=== PATIENT | female | born 1965 | race Caucasian/White ===

== ENCOUNTER 2021-05-04 14:07 | Emergency (ER) | payer SELFPAY ==
[~2021-05-04] VITALS: Ht 160 cm; Wt 68.0 kg
[2021-05-04] MEDS ORDERED: KETOROLAC TROMETHAMINE 30 MG/ML VIAL ONE (14:40)
[2021-05-04] MEDS ORDERED: FAMOTIDINE 20 MG/2 ML VIAL IV ONE ×2 (14:40→15:30)
[2021-05-04] MEDS ORDERED: SODIUM CHLORIDE 0.9% 1000ML 1,000 ML ONE (14:40)
[2021-05-04] MEDS ORDERED: ONDANSETRON HCL INJ 2MG/ML 2ML 2 MG/ML VIAL ONE (14:40)
[2021-05-04] MEDS ORDERED: KETOROLAC TROMETHAMINE 30 MG/ML VIAL IV STA (14:59)
[2021-05-04] MEDS ORDERED: ONDANSETRON HCL INJ 2MG/ML 2ML 2 MG/ML VIAL IV STA (14:59)
[2021-05-04] MEDS ORDERED: SODIUM CHLORIDE 0.9% 1000ML 1,000 ML IV SCH (15:00)
[2021-05-04] MEDS ORDERED: IOPAMIDOL 370 MG/ML 200 ML INFUS..BTL INJ ONE (16:03)
[2021-05-04] MEDS ORDERED: SODIUM CHLORIDE 0.9% 50ML 50 ML ONE ×2 (16:03→16:23)
[2021-05-04] MEDS ORDERED: HYDROCODONE/APAP 5MG-325MG TAB PO ONE (16:15)
[2021-05-04] MEDS ORDERED: PIPERACILLIN/TAZOBACTAM 4.5 GM in SODIUM CHLORIDE 0.9% 100 ML IV ONE (16:15)
[2021-05-04] MEDS ORDERED: DICYCLOMINE HCL 20 MG TAB PO ONE (16:15)
[2021-05-04] MEDS ORDERED: PIPERACILLIN/TAZOBACTAM SOD 2.25 GM VIAL ONE (16:23)
[2021-05-04] MEDS ORDERED: DICYCLOMINE HCL 10 MG CAP ONE (16:32)
[2021-05-04] MEDS ORDERED: CIPRO500 MG PO (17:10)
[2021-05-04] MEDS ORDERED: METRONIDAZOLE500 MG PO (17:12)
[2021-05-04] MEDS ORDERED: ONDANSETRON ODT4 MG PO (17:13)
[2021-05-04 17:16] VITALS: BP 114/70
[2021-05-04] MEDS ORDERED: HYDROCODON-ACE1 EA12 PO (17:18)
== END 2021-05-04 17:29 | disposition home or self-care (01) ==
LOC: FSED 14:35
DX: K57.32 Diverticulitis of large intestine without perforation or abscess without bleeding (principal); D72.829 Elevated white blood cell count, unspecified
CPT/HCPCS: 74177; 80048; 80076; 81003; 85025; 96374; 96375; 96376; 99284; J1885; J2405; J2543 ×2; J7030; J7050; Q9967